=== PATIENT | female | born 1990 | race African-American/Black ===

== ENCOUNTER 2017-12-03 18:19 | Emergency (ER) | payer BC, OTHER ==
[~2017-12-03] VITALS: Ht 170.2 cm; Wt 77.1 kg
[~2017-12-03 18:19] MED LIST: CLIN300C8 PO; METO10TA81 PO; ONDA8TAB9 PO; PROM25TA10 RC; SULF1TAB24 PO
[2017-12-03 19:05] VITALS: BP 120/73
[2017-12-03 19:39] LABS: BILIRUBIN,URINE NEGATIVE (NEG); CLARITY,URINE TURBID; COLOR,URINE RED; NITRITE,URINE NEGATIVE (NEG); PH,URINE 5.5; PROTEIN,URINE 100 mg/dL (NEG-TRACE)
[2017-12-03 19:44] LABS: U PREG PATIENT NEGATIVE (NEG)
[2017-12-03 20:28] LABS: BACTERIA,URINE MODERATE /HPF (0-FEW); RBC,URINE TNTC /HPF (0-2); SQUAMOUS EPITHELIAL CELL,UR OCC /LPF; WBC,URINE TNTC /HPF (0-4)
[2017-12-03] MEDS ORDERED: SULF1TAB24 PO (20:38)
--- NOTE | 2017-12-03 20:39 | PHYS DOC ---
Past Medical History Past Medical History: Anxiety Past Surgical History: Other Additional Past Surgical Histo: THRYOID CYST, CERVICAL BIOPSY Additional Information: 0.5 PPD Alcohol Use: Occasionally Drug Use: None Adult General Chief Complaint Chief Complaint: URINARY FREQUENCY HPI HPI Patient is a 27 year old female who presents with urinary urgency, frequency and occasional burning. The patient denies fever, nausea or vomiting. She is also requesting a chlamydia and gonorrhea screen. She declines prophylactic event. Review of Systems Review of Systems Constitutional: Denies fever or chills [] Eyes: Denies change in visual acuity, redness, or eye pain [] HENT: Denies nasal congestion or sore throat [] Respiratory: Denies cough or shortness of breath [] Cardiovascular: No additional information not addressed in HPI [] GI: Denies abdominal pain, nausea, vomiting, bloody stools or diarrhea [] : See history of present illness Musculoskeletal: Denies back pain or joint pain [] Integument: Denies rash or skin lesions [] Neurologic: Denies headache, focal weakness or sensory changes [] Endocrine: Denies polyuria or polydipsia [] All other systems were reviewed and found to be within normal limits, except as documented in this note. Allergies Allergies Allergies Coded Allergies Type Severity Reaction Last Updated Verified No Known Drug Allergies 04/20/14 No Physical Exam Physical Exam Constitutional: Well developed, well nourished, no acute distress, non-toxic appearance. [] HENT: Normocephalic, atraumatic, bilateral external ears normal, oropharynx moist, no oral exudates, nose normal. [] Eyes: PERRLA, EOMI, conjunctiva normal, no discharge. [] Neck: Normal range of motion, no tenderness, supple, no stridor. [] Cardiovascular:Heart rate regular rhythm, no murmur [] Lungs & Thorax: Bilateral breath sounds clear to auscultation [] Abdomen: Bowel sounds normal, soft, no tenderness, no masses, no pulsatile masses. [] Skin: Warm, dry, no erythema, no rash. [] Back: No tenderness, no CVA tenderness. [] Extremities: No tenderness, no cyanosis, no clubbing, ROM intact, no edema. [] Neurologic: Alert and oriented X 3, normal motor function, normal sensory function, no focal deficits noted. [] Psychologic: Affect normal, judgement normal, mood normal. [] Current Patient Data Vital Signs Vital Signs Date Time Temp Pulse Resp B/P (MAP) Pulse Ox O2 Delivery O2 Flow Rate FiO2 12/03/17 19:05 98.0 77 18 120/73 (89) 99 Room Air 98.0 Lab Values Laboratory Tests Test 12/03/17 19:15 Urine Collection Type Void Urine Color Red Urine Clarity Turbid Urine pH 5.5 Urine Specific [place] 1.025 Urine Protein 100 mg/dL (NEG-TRACE) Urine Glucose (UA) Negative mg/dL (NEG) Urine Ketones (Stick) Negative mg/dL (NEG) Urine Blood Large (NEG) Urine Nitrite Negative (NEG) Urine Bilirubin Negative (NEG) Urine Urobilinogen Dipstick 1.0 mg/dL (0.2 mg/dL) Urine Leukocyte Esterase Large (NEG) Urine RBC Tntc /HPF (0-2) Urine WBC Tntc /HPF (0-4) Urine Squamous Epithelial Cells Occ /LPF Urine Bacteria Moderate /HPF (0-FEW) Urine Mucus Slight /LPF Urine Test Negative (NEG) Urine Chlamydia DNA (PCR) Negative (Negative) Neisseria gonorrhoeae DNA (PCR) Negative (Negative) Microbiology 12/03/17 Urine Culture - Preliminary, Resulted 12/03/17 Urine Culture Result 1 (MARILIN) - Preliminary, Resulted EKG EKG [] Radiology/Procedures Radiology/Procedures [] Course & Med Decision Making Course & Med Decision Making Pertinent Labs and Imaging studies reviewed. (See chart for details) []The patient is positive for urinary tract infection. We informed her that we will call with the results of her STD screening. She is in agreement with this plan. Dragon Disclaimer Dragon Disclaimer This electronic medical record was generated, in whole or in part, using a voice recognition dictation system. Departure Departure Impression: Primary Impression: UTI (urinary tract infection) Disposition: 01 HOME, SELF-CARE Condition: STABLE Referrals: NO PCP (PCP) Patient Instructions: Urinary Tract Infection Additional Instructions: Take antibiotics as prescribed. Increase fluids and rest. Follow-up with your primary care provider in one week for urine recheck. If worsening return to the emergency department. Scripts Sulfamethoxazole/Trimethoprim (BACTRIM DS TABLET) 1 Each Tablet 1 TAB PO BID, #14 TAB Prov: FOREIGN BURGOS APRN 10/29/18 Attending Signature Attending Signature I have reviewed the PA/INDUSTRIAL DESIGN INTERN's note and plan of care. I was available for consultation as needed during the patient's visit in the emergency department. I agree with the clinical impression, plan, and disposition. FOREIGN BURGOS APRN Dec 03, 2017 20:39 ALBARO FERNANDEZ DO Dec 06, 2017 10:56
== END 2017-12-03 20:45 | disposition home or self-care (01) ==
LOC: ER 18:19
DX: N39.0 Urinary tract infection, site not specified (principal); F41.9 Anxiety disorder, unspecified; F17.200 Nicotine dependence, unspecified, uncomplicated
CPT/HCPCS: 81001; 81025; 87086; 87186; 87491; 87591; 99284

== ENCOUNTER 2018-04-14 13:17 | Emergency (ER) | payer BC ==
[~2018-04-14] VITALS: Ht 170.2 cm; Wt 77.1 kg
[2018-04-14 14:23] VITALS: BP 144/83
[2018-04-14 15:16] LABS: BILIRUBIN,URINE NEGATIVE (NEG); CLARITY,URINE CLEAR; COLOR,URINE YELLOW; NITRITE,URINE NEGATIVE (NEG); PH,URINE 6.5; PROTEIN,URINE NEGATIVE (NEG-TRACE); UROBILINOGEN,URINE 0.2 mg/dL (0.2 mg/dL)
[2018-04-14 15:21] LABS: BACTERIA,URINE MANY /HPF (0-FEW); SQUAMOUS EPITHELIAL CELL,UR MANY /LPF; WBC,URINE >40 /HPF (0-4)
--- NOTE | 2018-04-14 16:10 | PHYS DOC ---
Past Medical History Past Medical History: No Pertinent History, Anxiety Past Surgical History: Other Additional Past Surgical Histo: THRYOID CYST, CERVICAL BIOPSY Alcohol Use: Occasionally Drug Use: None Adult General Chief Complaint Chief Complaint: DIARRHEA HPI HPI 27 -year-old female presents to the ER as her employer wanted her to be evaluated as she was exposed to a resident who had been diagnosed with the flu 2 weeks ago and had missed work 2 days this week with complaints of diarrhea. Patient currently is denying any GI issues. Patient reports she has more concerns as she has had dysuria and vaginal irritation. Patient denies fever, nausea or vomiting, or abnorm. vag bleeding. LMP 03/17/18. She denies concerns for STDs. She reports she had UTI 3 mo. ago. Review of Systems Review of Systems Constitutional: Denies fever or chills [] Eyes: Denies change in visual acuity, redness, or eye pain [] HENT: Denies nasal congestion or sore throat [] Respiratory: Denies cough or shortness of breath [] Cardiovascular: No additional information not addressed in HPI [] GI: Denies abdominal pain, nausea, vomiting, or bloody stools. Reports 2 days of intermittent diarrhea this wk- denies any today : Denies hematuria. Reports vaginal irritation and dysuria Musculoskeletal: Denies back pain or joint pain [] Integument: Denies rash or skin lesions [] Neurologic: Denies headache, focal weakness or sensory changes [] All other systems were reviewed and found to be within normal limits, except as documented in this note. Allergies Allergies Allergies Coded Allergies Type Severity Reaction Last Updated Verified No Known Drug Allergies 04/20/14 No Physical Exam Physical Exam Constitutional: Well developed, well nourished, no acute distress, non-toxic appearance. [] HENT: Normocephalic, atraumatic, bilateral ears normal, oropharynx moist- no pharyngeal swelling/erythema; nose normal. [] Eyes: Pupils equal, conjunctiva normal, no discharge. [] Neck: Normal range of motion, supple, no stridor. [] Cardiovascular: Heart rate regular rhythm, no murmur [] Lungs & Thorax: Bilateral breath sounds clear to auscultation- resp. equal/nonlabored Abdomen: Bowel sounds normal, soft, no tenderness/distention Skin: Warm, dry, no erythema, no rash. [] Back: No tenderness, no CVA tenderness. [] Extremities: No tenderness, no cyanosis, no clubbing, ROM intact, no edema. [] Neurologic: Alert and oriented X 3, normal motor function, normal sensory function, no focal deficits noted. [] Psychologic: Affect normal, judgement normal, mood normal. [] Current Patient Data Vital Signs Lab Values Laboratory Tests Test 04/14/18 13:46 04/14/18 14:20 04/14/18 15:20 04/14/18 16:00 POC Urine HCG, Qualitative Hcg negative (Negative) Urine Collection Type Clean catch Urine Color Yellow Urine Clarity Clear Urine pH 6.5 Urine Specific [place] 1.020 Urine Protein Negative mg/dL (NEG-TRACE) Urine Glucose (UA) Negative mg/dL (NEG) Urine Ketones (Stick) Negative mg/dL (NEG) Urine Blood Large (NEG) Urine Nitrite Negative (NEG) Urine Bilirubin Negative (NEG) Urine Urobilinogen Dipstick 0.2 mg/dL (0.2 mg/dL) Urine Leukocyte Esterase Large (NEG) Urine RBC 6-10 /HPF (0-2) Urine WBC >40 /HPF (0-4) Urine Squamous Epithelial Cells Many /LPF Urine Bacteria Many /HPF (0-FEW) Urine Mucus Mod /LPF Erythrocyte Sedimentation Rate 4 (0-25) C-Reactive Protein, Quantitative 0.8 mg/L (0-3.3) Chlamydia DNA Probe Negative (Negative) Neisseria gonorrhoeae DNA Probe Negative (Negative) Microbiology 04/14/18 Wet Prep - Final, Complete 04/14/18 Urine Culture - Final, Complete 04/14/18 Urine Culture Result 1 (MARILIN) - Final, Complete 04/14/18 Antimicrobic Susceptibility - Final, Complete EKG EKG [] Radiology/Procedures Radiology/Procedures 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 white vaginal discharge in vaginal vault- no bleeding/clots, cervical os closed Bimanual: No adnexal masses or tenderness, No CMT Course & Med Decision Making Course & Med Decision Making Pertinent Labs reviewed. (See chart for details) Pt came to ER for eval. as her job needed doctor's eval as she had been exposed to flu like illness. Pt during initial exam reported she had been having vaginal irritation and dysuria requesting pelvic exam. Pt reports she thinks she is starting her menses- UA with lg blood and leuks. with micro showing >40 WBCs neg. UCG. Pelvic exam was done with swabs obtained- neg. yeast/trich. Pt was advised on need for f/u on GC/Chlam. pending tests in 2-3 days for results. Pt had white vaginal discharge without odor on exam- discussed prophylactic tx while in the ER for pending tests as well as plans for Keflex for UTI. Pt preferred no tx for STDs. Education provided on s&s to return to ER for and pt to f/u with her PCP for re-eval. Pt was in no distress during discharge discussion. Pt had labs mistakenly ordered for CRP/sed rate- lab was called to cancel those results. Dragon Disclaimer Dragon Disclaimer This electronic medical record was generated, in whole or in part, using a voice recognition dictation system. Departure Departure Impression: Primary Impression: Urinary tract infection Disposition: HOME, SELF-CARE Condition: STABLE Referrals: NO PCP (PCP) Patient Instructions: Urinary Tract Infection Additional Instructions: Drink plenty of fluids. Tylenol and/or ibuprofen as needed for pain and fever as directed on container. If symptoms persist follow-up with your primary care physician for reevaluation and further care. Scripts Cephalexin (KEFLEX) 500 Mg Capsule 1 CAP PO BID, #14 CAP 0 Refills Prov: SAMMY PRYOR APRN 04/14/18 SAMMY PRYOR APRN Apr 14, 2018 16:09
[2018-04-14] MEDS ORDERED: CEPH-264 PO (17:12)
[2018-04-16 13:25] LABS: GC PROBE Negative (Negative)
== END 2018-04-14 17:24 | disposition home or self-care (01) ==
LOC: ER 13:17
DX: N39.0 Urinary tract infection, site not specified (principal); R19.7 Diarrhea, unspecified; F41.9 Anxiety disorder, unspecified
CPT/HCPCS: 36415; 81001; 81025; 85651; 86140; 87086; 87491; 87591; 99283; Q0111; 87186

== ENCOUNTER 2019-05-25 19:07 | Emergency (ER) | payer OTHER ==
[~2019-05-25] VITALS: Ht 172.7 cm; Wt 70.4 kg
[~2019-05-25 19:07] MED LIST changes: +CEPH-264 PO; +ONDA4TAB7 PO
--- NOTE | 2019-05-25 19:41 | PHYS DOC ---
Past Medical History Past Medical History: Anxiety Past Surgical History: Other Additional Past Surgical Histo: THRYOID CYST, CERVICAL BIOPSY Smoking Status: Current Every Day Smoker Alcohol Use: Occasionally Drug Use: None General Adult EDM: Chief Complaint: VOMITING IN HPI: HPI: Patient is a 28 year old female who presents with complaint of nausea and vomiting for the last few days. Patient states that she is 15 weeks . She states that she has been prescribed Zofran and the Zofran has been working fairly well but over the last couple of days, it has not been working. She states that she has had several episodes of vomiting today and is not able to keep anything down including water. She does admit to some upper abdominal cramping which she attributes to the vomiting. She denies any diarrhea. She also denies any fever.[] Review of Systems: Review of Systems: Constitutional: Denies fever or chills. [] Respiratory: Denies cough or shortness of breath. [] Cardiovascular: Denies chest pain or edema. [] GI: Complains of upper abdominal cramping with nausea and vomiting. Denies diarrhea. [] : Denies dysuria. [] Musculoskeletal: Denies back pain or joint pain. [] Neurologic: Denies headache, focal weakness or sensory changes. [] A full 10 point review of systems has been reviewed and is otherwise negative. Heart Score: Risk Factors: Risk Factors: DM, Current or recent (<one month) smoker, HTN, HLP, family history of CAD, obesity. Risk Scores: Score 0 - 3: 2.5% MACE over next 6 weeks - Discharge Home Score 4 - 6: 20.3% MACE over next 6 weeks - Admit for Clinical Observation Score 7 - 10: 72.7% MACE over next 6 weeks - Early Invasive Strategies Current Medications: Current Medications Medications (Trade) Dose Ordered Sig/Nick Start Time Stop Time Status Last Admin Dose Admin Diphenhydramine HCl (Benadryl) 25 mg 1X ONCE 05/25/19 20:00 05/25/19 20:01 Metoclopramide HCl (Reglan Vial) 10 mg 1X ONCE 05/25/19 20:00 05/25/19 20:01 Sodium Chloride 1,000 ml @ 1,000 mls/hr Q1H 05/25/19 20:00 05/25/19 20:59 Allergies: Allergies: Allergies Coded Allergies Type Severity Reaction Last Updated Verified No Known Drug Allergies 04/20/14 No Physical Exam: PE: Constitutional: Well developed, well nourished, no acute distress, non-toxic appearance. [] HENT: Normocephalic, atraumatic, bilateral external ears normal, oropharynx m oist, no oral exudates, nose normal. [] Eyes: PERRLA, EOMI, conjunctiva normal, no discharge. [] Neck: Normal range of motion, no tenderness, supple, no stridor. [] Cardiovascular: Mildly tachycardic rate with regular rhythm[] Lungs & Thorax: Bilateral breath sounds clear to auscultation [] Abdomen: Bowel sounds normal, soft, with mild epigastric tenderness. [] Skin: Warm, dry, no erythema, no rash. [] Extremities: No tenderness, no cyanosis, no clubbing, ROM intact. [] Neurologic: Alert and oriented X 3, no focal deficits noted. [] EKG: EKG: [] Radiology/Procedures: Radiology/Procedures: [] Course & Med Decision Making: Course & Med Decision Making Pertinent Labs and Imaging studies reviewed. (See chart for details) [] Dragon Disclaimer: [place] Disclaimer: This electronic medical record was generated, in whole or in part, using a voice recognition dictation system. Departure Departure Impression: Primary Impression: Hyperemesis gravidarum Disposition: 01 HOME, SELF-CARE Condition: STABLE Referrals: NO PCP (PCP) Patient Instructions: Hyperemesis Gravidarum Scripts Metoclopramide Hcl (REGLAN) 10 Mg Tablet 1 TAB PO QID PRN for NAUSEA/VOMITING, #20 TAB 0 Refills before food and bedtime Prov: JENNIFER MAJOR Jr. DO 05/25/19 Ondansetron (ONDANSETRON ODT) 4 Mg Tab.rapdis 1 TAB PO PRN Q6-8HRS PRN for NAUSEA, #15 TAB Prov: JENNIFER MAJOR Jr. DO 05/25/19 JENNIFER MAJOR Jr. DO May 25, 2019 19:41
[2019-05-25 19:57] LABS: BASO # 0.1 x10^3/uL (0.0-0.2); BASO % 1 % (0-3); EOS % 0 % (0-3); HEMATOCRIT 39.4 % (36.0-47.0); HEMOGLOBIN 12.8 g/dL (12.0-15.5); LYMPH # 1.4 x10^3/uL (1.0-4.8); LYMPH % 13 % (24-48); MEAN CORPUSCULAR HEMOGLOBIN 27 pg (25-35); MEAN CORPUSCULAR HGB CONC 32 g/dL (31-37); MEAN CORPUSCULAR VOLUME 83 fL (79-100); MONO # 0.6 x10^3/uL (0.0-1.1); MONO % 6 % (0-9); NEUT # 8.2 x10^3/uL (1.8-7.7); NEUT % 80 % (31-73); PLATELET COUNT 288 x10^3/uL (140-400); RED BLOOD COUNT 4.75 x10^6/uL (3.50-5.40); RED CELL DISTRIBUTION WIDTH 13.8 % (11.5-14.5); WHITE BLOOD COUNT 10.3 x10^3/uL (4.0-11.0)
[2019-05-25] MEDS ORDERED: diphenhydrAMINE 50 MG/ML VIAL IVP ONE (20:00)
[2019-05-25] MEDS ORDERED: IV NORMAL SALINE 1000ML BAG 1,000 ML IV SCH (20:00)
[2019-05-25] MEDS ORDERED: METOCLOPRAMIDE HCL 10 MG/2 ML VIAL. IVP ONE (20:00)
[2019-05-25 20:04] LABS: CALCIUM 9.7 mg/dL (8.5-10.1); CREATININE 0.7 mg/dL (0.6-1.0); GFR 122.4; POTASSIUM 3.6 mmol/L (3.5-5.1)
[2019-05-25] MEDS ORDERED: ONDANSETRON PF 4 MG/2 ML VIAL. ONE (20:04)
[2019-05-25 20:10] LABS: ALBUMIN 3.8 g/dL (3.4-5.0); TOTAL BILIRUBIN 0.7 mg/dL (0.2-1.0); TOTAL PROTEIN 7.5 g/dL (6.4-8.2)
[2019-05-25 20:25] LABS: BILIRUBIN,URINE NEGATIVE (NEG); CLARITY,URINE CLEAR; NITRITE,URINE NEGATIVE (NEG); PROTEIN,URINE 30 mg/dL (NEG-TRACE)
[2019-05-25 20:29] LABS: COLOR,URINE DK YELLOW
[2019-05-25] MEDS ORDERED: BUTORPHANOL 2 MG/ML VIAL. IV ONE (20:30)
[2019-05-25] MEDS ORDERED: ONDANSETRON PF 4 MG/2 ML VIAL. IVP ONE (20:30)
[2019-05-25 20:32] LABS: BACTERIA,URINE MANY /HPF (0-FEW); RBC,URINE 0 /HPF (0-2); SQUAMOUS EPITHELIAL CELL,UR MANY /LPF; WBC,URINE OCC /HPF (0-4)
[2019-05-25] MEDS ORDERED: ONDA4TAB12 PO (21:21)
[2019-05-25] MEDS ORDERED: METO10TA81 PO (21:21)
[2019-05-25 21:40] VITALS: BP 102/57
== END 2019-05-25 21:46 | disposition home or self-care (01) ==
LOC: ER 19:07
DX: O21.0 Mild hyperemesis gravidarum (principal); R10.13 Epigastric pain; I47.1 Supraventricular tachycardia; F41.9 Anxiety disorder, unspecified; F17.200 Nicotine dependence, unspecified, uncomplicated; Z98.890 Other specified postprocedural states; Z3A.15 15 weeks gestation of pregnancy
CPT/HCPCS: 36415; 80053; 81001; 83690; 85025; 87086; 96361; 96374; 96375; 99285; J0595; J1200; J2405; J2765; J7030